=== PATIENT | male | born 1995 | race African-American/Black ===

== ENCOUNTER 2019-08-13 07:04 | Emergency (ER) | payer SELFPAY ==
[~2019-08-13] VITALS: Ht 185.4 cm; Wt 63.0 kg
--- NOTE | 2019-08-13 07:42 | NUR ---
DR OLIVAREZ AT BEDSIDE FOR EVAL.
[2019-08-13] MEDS ORDERED: CEFTRIAXONE 500 MG VIAL ONE (07:57)
[2019-08-13] MEDS ORDERED: BACI/NEOM/POLY B OINT PKT 1 UDPKT PACKET ONE (07:58)
[2019-08-13] MEDS ORDERED: AZITHROMYCIN 250 MG TABLET ONE (07:58)
[2019-08-13] MEDS ORDERED: LIDOCAINE /MPF 1% VIAL 5 ML VIAL ONE (07:59)
[2019-08-13] MEDS ORDERED: PENICILLIN G BENZATHINE 2.4 MMU/4 ML ML IM ONE ×2 (07:59→08:00)
[2019-08-13] MEDS ORDERED: EMTRICITABINE/TENOFOVIR 1 TAB PO SCH (08:00)
[2019-08-13] MEDS ORDERED: AZITHROMYCIN 250 MG TABLET PO ONE (08:00)
[2019-08-13] MEDS ORDERED: RALTEGRAVIR POTASSIUM 400 MG TABLET PO ONE (08:00)
[2019-08-13] MEDS ORDERED: CEFTRIAXONE 500 MG VIAL IM ONE (08:00)
--- NOTE | 2019-08-13 08:05 | NUR ---
SENIOR ASIC ENGINEER AT BEDSIDE FOR BLOOD DRAW.
[2019-08-13] MEDS ORDERED: EMTRICITABINE 200 MG CAPSULE PO ONE (08:30)
[2019-08-13] MEDS ORDERED: TENOFOVIR DISOPROXIL FUMARATE 300 MG TABLET PO ONE (08:30)
--- NOTE | 2019-08-13 08:42 | NUR ---
ER/FLOOR SWEEPER INSTRUCTIONS PT GIVEN DISCHARGE ISNTRUCTIONS, VERBALIZED UNDERSTANDING. PT GIVEN DISCHARGE DOCUMENTS INCLUSING PRESCRIPTIONS. PT LEFT ER DEPARTMENT IN STABLE CONDITION.
[2019-08-13 08:56] VITALS: BP 128/80
[2019-08-15 12:06] LABS: HIV SCRN 4G wRFX Non Reactive (Non Reactive)
== END 2019-08-13 08:56 | disposition home or self-care (01) ==
LOC: ER 07:11
DX: Z20.2 Contact with and (suspected) exposure to infections with a predominantly sexual mode of transmission (principal); Z72.51 High risk heterosexual behavior; R00.0 Tachycardia, unspecified
CPT/HCPCS: 80074; 87389; 87491; 87591; 96372 ×2; 99284; J0558; J0696; J3490; 36415